=== PATIENT | male | born 1970 | race Caucasian/White ===

== ENCOUNTER → 2017-03-10 | Day surgery (SDC) | payer BC ==
[~2017-03-10] MED LIST: AMITIZA24 MCG PO
--- NOTE | ~2017-03-10 | OR ---
Unit #: [id number]: [id number] Patient: KAREL VERAS [id number] [address] [place], [place] [address] [id number] O MR#: [id number] NAME: KAREL VERAS ROOM: Date of Procedure: 03/10/2017 Admission Date: 03/10/2017 Surgeon: Wali Hodgson M.D. : 1970 Attending Physician: Wali Hodgson M.D. Referring Physician: Wali Hodgson M.D. Primary Care Physician: Emory Conde M.D. OPERATIVE REPORT PREOPERATIVE DIAGNOSES The patient had presented with history of significant constipation. He is feeling better on Amitiza. PROCEDURE PERFORMED Colonoscopy up to cecum and terminal ileum. POSTOPERATIVE DIAGNOSES Completely normal examination up to cecum and terminal ileum. There were no mucosal abnormalities whatsoever. RECOMMENDATIONS The patient is advised to continue Amitiza on alternate days as this is working fine for him. He will be followed up in the office in 3 months' time. SEDATION USED MAC. DESCRIPTION OF PROCEDURE Following detailed explanation of potential risks and complications of a colonoscopy, namely perforation, bleeding, and complication related to sedation, the patient was brought to GI lab and laid in the left lateral decubitus position. A digital rectal examination was performed, which was normal. Lubricated tip of the Olympus video colonoscope was inserted through the anus and advanced under direct vision. The scope was advanced past rectosigmoid into descending colon. No diverticula were seen in this area. The scope tip was then navigated all the way up to cecum with visualization of the ileocecal valve and the appendiceal orifice. Preparation was excellent with good visualization and photodocumentation was obtained. Last several inches of the terminal ileum were also visualized after intubation of the ileocecal valve and appeared normal. Successive segments of the colonic mucosa were examined upon withdrawal and appeared unremarkable. There being no polyps, mass lesions, AVMs, or diverticula. The patient did not have any hemorrhoids at anal verge. The scope was then withdrawn and the patient returned to the recovery area. He tolerated the procedure without any postprocedure complications. Dictated by... Wali Hodgson M.D. Unit #: [id number] #: [id number] Patient: KAREL VERAS/rickie TD: 03/10/2017 23:00 JOB #: [id number] OPERATIVE REPORT Page 1 of 1 X Wali Hodgson MD PROCEDURE OPERATIVE NOTE
== END | disposition home or self-care (01) ==
LOC: COPS 10:13
DX: K59.00 Constipation, unspecified (principal); Z88.2 Allergy status to sulfonamides; Z79.899 Other long term (current) drug therapy; Z98.890 Other specified postprocedural states
CPT/HCPCS: J2250